=== PATIENT | male | born 1955 | race African-American/Black ===

== ENCOUNTER → 2020-08-18 | Outpatient (CLI) | payer OTHER ==
--- NOTE | 2020-08-18 11:00 | RAD ---
LUMBAR SPINE 2-3V DATE: 08/18/2020 12:00 AM INDICATION: Reason: CHRONIC LOWER BACK PAIN WITH RADICULOPATHY. NO KNOWN INJURY / Spl. Instructions: / History: COMPARISON: None. FINDINGS: Five non-rib bearing lumbar-type vertebral bodies are present. Bones/Alignment: No evidence of acute compression fracture. There is no listhesis. Joints: Multilevel degenerative disc disease, worst and moderate to severe at L5-S1. Lumbar facet arthropathy. Miscellaneous: None. IMPRESSION: Lumbar spondylosis, moderate to severe at L5-S1 Electronically signed by: Domingo Yusuf MD (08/18/2020 10:57 AM) [id number]
--- NOTE | 2020-08-18 11:05 | RAD ---
HIP RIGHT 2 VIEW DATE: 08/18/2020 12:00 AM INDICATION: Reason: CHRONIC LOWER BACK AND R HIP PAIN WITH RADICULOPATHY. NO KNOWN INJURY / Spl. Instructions: / History: COMPARISON: None. FINDINGS: Bones: There is no evidence of acute fracture or dislocation. Joints: The joint spaces are normal. Miscellaneous: None. IMPRESSION: Normal exam Electronically signed by: Domingo Yusuf MD (08/18/2020 11:02 AM) [id number]
== END ==
LOC: RAD 08:46
PROVIDERS: ATTEND Family Medicine
DX: M51.37 Other intervertebral disc degeneration, lumbosacral region (principal); M47.27 Other spondylosis with radiculopathy, lumbosacral region; G89.29 Other chronic pain; M25.551 Pain in right hip
CPT/HCPCS: 72100; 73502